=== PATIENT | female | born 1940 | race Caucasian/White ===

== ENCOUNTER 2016-03-28 02:14 | Inpatient (IN) | payer MEDICARE ==
[2016-03-28] MEDS ORDERED: SODIUM CHLORIDE 0.9% 1,000 ML IV STA ×2 (02:28)
[2016-03-28] MEDS ORDERED: SODIUM CHLORIDE 0.9% 500 ML IV STA (02:28)
--- NOTE | 2016-03-28 02:29 | ED ---
General Adult HPI - General Stated complaint: syncope, no fall Time Seen by Provider: 03/28/16 02:20 Source: RN notes reviewed, old records reviewed - History of Present Illness Initial comments: This is a 75-year-old female here for evaluation of altered mental status and responsiveness. Patient is unable to give history secondary to current condition. Patient's but in by EMS, history obtained from EMS as well as patient's chart. Patient has 2-3 days of unresponsiveness, mild arousability to painful stimuli. - Related Data Home Medications Medication Instructions Recorded Confirmed Aspirin 81 mg PO DAILY 10/12/13 06/28/15 Carbidopa/Levodopa [Sinemet 25-100 1 tab PO QID 10/12/13 06/28/15 mg] Cholecalciferol [Vitamin D3] 5,000 unit PO DAILY 10/12/13 06/27/15 Cyanocobalamin [Vitamin B-12] 1,000 mcg PO DAILY 10/12/13 06/28/15 Rosuvastatin Calcium [Crestor] 40 mg PO HS 10/12/13 06/28/15 Metoprolol Tartrate [Lopressor] 25 mg PO BID 07/16/14 06/28/15 Bisacodyl [Dulcolax] 10 mg RECTAL DAILY PRN 12/24/14 06/28/15 Potassium Chloride ER [K-Dur 10] 10 meq PO DAILY 12/24/14 06/28/15 Sennosides [Senokot] 8.6 mg PO BID PRN 12/24/14 06/28/15 Sertraline [Zoloft] 50 mg PO DAILY 12/24/14 06/28/15 metFORMIN HCL [Glucophage] 500 mg PO BID-W/MEALS 03/24/15 06/28/15 Acetaminophen Tab [Tylenol] 650 mg PO Q4H PRN 06/28/15 06/28/15 Ketoconazole 2% Cream [Nizoral 2%] 1 applic TOPICAL BID 06/28/15 06/28/15 Magnesium Hydroxide [Milk of 2,400 mg PO DAILY PRN 06/28/15 06/28/15 Magnesia] Mirabegron [Myrbetriq] 25 mg PO DAILY 06/28/15 06/28/15 Na Phos,M-B/Na Phos,Di-Ba [Fleet 133 ml RECTAL DAILY PRN 06/28/15 06/28/15 Adult] traMADol HCl [Ultram] 50 - 100 mg PO Q6H PRN 06/28/15 06/28/15 Previous Rx's Medication Instructions Recorded Baclofen [Lioresal] 10 mg PO HS #30 tab 07/23/14 Gabapentin [Neurontin] 600 mg PO BID #60 tablet 07/23/14 Sennosides-Docusate Sodium 2 tab PO DAILY #30 tablet 07/03/15 [Senokot-S] Warfarin [Coumadin] 2.5 mg PO DAILY #30 tab 07/03/15 traMADol HCL [Ultram] 50 - 100 mg PO Q4HR PRN #90 tab 07/03/15 Furosemide [Lasix] 20 mg PO QAM tab 07/05/15 Oxybutynin Xl [Ditropan XL] 10 mg PO QAM tab.er.24 07/05/15 Sulfamethox-Tmp 800-160Mg [Bactrim 1 each PO BID #14 tab 07/05/15 DS 800-160 mg] Allergies Allergy/AdvReac Type Severity Reaction Status Date / Time Penicillins Allergy Severe Rash/Hives Verified 06/28/15 12:33 carvedilol [From Coreg] Allergy Unknown Verified 06/28/15 12:33 pentazocine lactate Allergy Nausea & Verified 06/28/15 12:33 [From Talwin] Vomiting Iodine and Iodide Containing AdvReac Unknown Verified 06/28/15 12:33 Produc maxide Allergy Unknown Uncoded 06/27/15 19:50 Review of Systems ROS Statement: Those systems with pertinent positive or pertinent negative responses have been documented in the HPI. ROS Other: All systems not noted in ROS Statement are negative. Past Medical History Past Medical History: Asthma, Coronary Artery Disease (CAD), Heart Failure, Diabetes Mellitus, Hyperlipidemia, Hypertension, Osteoarthritis (OA) Additional Past Medical History / Comment(s): 12/30/14 Pt admitted to floor post op-see surgical section. Pt has legal Don aburto. Electric Fre[employer] attempted to contact but currently out of office per his staff. Other HX: NIDDM, parkinsons, NEUROPATHY, KIDNEY STONES,B12 deficiency, L shoulder bursitis, PAST SLEEP APNEA BUT AFTER LOSING 80 POUNDS NOW NO PROBLEM, CHRONIC CONSTIPATION, uti, impaired gait, hx falls, incont of urine-wears depends, chronic lumbar pain, DDD, spinal stenosis. History of Any Multi-Drug Resistant Organisms: None Reported Past Surgical History: Adenoidectomy, Appendectomy, Coronary Bypass/CABG, Heart Catheterization With Stent, Hysterectomy Additional Past Surgical History / Comment(s): 12/30/14 Cystoscopy L percutaneous nephrostolithotomy laser lithotripsy with C-arm and holmium laser. Other SX: LITHOTRYPSY, TRIPLE VESSEL BYPASS 1 YEAR AFTER BYPASS HAD STENT TO CIRC. NASAL SX, LUMBAR LAMINECTOMY AND SPINAL FUSION L2-S1 RODS /SCREWS, nasal sx Past Anesthesia/Blood Transfusion Reactions: No Reported Reaction Additional Past Anesthesia/Blood Transfusion Reaction / Comment(s): VERTIGO Date of Last Stent Placement:: 2006 Past Psychological History: Depression Additional Psychological History / Comment(s): Pt resides at [facility]. She ambulates with walker. She performs her own ADls-staff manage her medications. She doesn't drive. Electric Freight Car Operator attempted to contact pt's legal guardian re code status-Don Garcia but staff stated he is out of office. Pt requesting NO CODE. Pt is alert and oriented x 3 at this time. Electric Freight Car Operator contacted [facility] and [place] and they are checking to see if they have a copy of AD. Smoking Status: Never smoker Past Alcohol Use History: None Reported Past Drug Use History: None Reported - Past Family History Father Family Medical History: Cancer Additional Family Medical History / Comment(s): OF LUNG CANCER Mother Family Medical History: Myocardial Infarction ([place]) Additional Family Medical History / Comment(s): AT AGE 82 FROM [place] General Exam Limitations: altered mental status, physical limitation General appearance: alert, obtunded, in distress Head exam: Present: atraumatic, normocephalic, normal inspection Eye exam: Present: normal appearance, PERRL, EOMI. Absent: scleral icterus, conjunctival injection, periorbital swelling ENT exam: Present: mucous membranes dry Neck exam: Present: normal inspection. Absent: tenderness, meningismus, lymphadenopathy Respiratory exam: Present: normal lung sounds bilaterally. Absent: respiratory distress, wheezes, rales, rhonchi, stridor Cardiovascular Exam: Present: regular rate, normal rhythm, normal heart sounds. Absent: systolic murmur, diastolic murmur, rubs, gallop, clicks GI/Abdominal exam: Present: soft, normal bowel sounds. Absent: distended, tenderness, guarding, rebound, rigid Extremities exam: Present: normal inspection, full ROM, normal capillary refill. Absent: tenderness, pedal edema, joint swelling, calf tenderness Back exam: Present: normal inspection Neurological exam: Present: alert, oriented X3, CN II-XII intact Psychiatric exam: Present: normal affect, normal mood Skin exam: Present: warm, dry, intact, normal color. Absent: rash Course Vital Signs 03/28/16 03/28/16 02:48 03:38 Temperature 97.6 F Pulse Rate 55 L 52 L Respiratory 14 14 Rate Blood Pressure 140/76 111/76 O2 Sat by Pulse 98 100 Oximetry - Reevaluation(s) Reevaluation #1: 03/28/16 04:10 Patient remains unresponsive Medical Decision Making - Medical Decision Making 75 female in the ER for evaluation of decreased level of responsiveness for 3 days. Patient continue with responsiveness or the emergency room, and organic cause found. Patient will be admitted for neurological evaluation, CT lab work and urine are negative. - Lab Data Result diagrams: 03/28/16 02:20 03/28/16 02:20 Lab Results 03/28/16 03/28/16 03/28/16 Range/Units 02:20 02:20 02:20 WBC 6.0 (3.8-10.6) k/uL RBC 4.09 (3.80-5.40) m/uL Hgb 11.7 (11.4-16.0) gm/dL Hct 36.9 (34.0-46.0) % MCV 90.2 (80.0-100.0) fL MCH 28.5 (25.0-35.0) pg MCHC 31.7 (31.0-37.0) g/dL RDW 15.0 (11.5-15.5) % Plt Count 127 L (150-450) k/uL Neutrophils % 61 % Lymphocytes % 29 % Monocytes % 6 % Eosinophils % 2 % Basophils % 1 % Neutrophils # 3.7 (1.3-7.7) k/uL Lymphocytes # 1.7 (1.0-4.8) k/uL Monocytes # 0.3 (0-1.0) k/uL Eosinophils # 0.1 (0-0.7) k/uL Basophils # 0.0 (0-0.2) k/uL Hypochromasia Slight PT (9.0-12.0) sec INR (<1.1) APTT (22.0-30.0) sec Sodium 144 (137-145) mmol/L Potassium 4.3 (3.5-5.1) mmol/L Chloride 105 (98-107) mmol/L Carbon Dioxide 30 (22-30) mmol/L Anion Gap 9 mmol/L BUN 24 H (7-17) mg/dL Creatinine 1.00 (0.52-1.04) mg/dL Est GFR (MDRD) Af Amer >60 (>60 ml/min/1.73 sqM) Est GFR (MDRD) Non-Af 54 (>60 ml/min/1.73 sqM) Glucose 92 (74-99) mg/dL Plasma Lactic Acid Aden (0.7-2.0) mmol/L Calcium 9.1 (8.4-10.2) mg/dL Phosphorus 4.0 (2.5-4.5) mg/dL Magnesium 2.2 (1.6-2.3) mg/dL Total Bilirubin 0.5 (0.2-1.3) mg/dL AST 17 (14-36) U/L ALT 18 (9-52) U/L Alkaline Phosphatase 78 (38-126) U/L Total Creatine Kinase 59 (30-135) U/L CK-MB (CK-2) 1.2 (0.0-2.4) ng/mL CK-MB (CK-2) Rel Index 2.0 Troponin I <0.012 (0.000-0.034) ng/mL Total Protein 5.7 L (6.3-8.2) g/dL Albumin 3.5 (3.5-5.0) g/dL TSH 2.150 (0.465-4.680) mIU/L Urine Color Urine Appearance (Clear) Urine pH (5.0-8.0) Ur Specific [place] (1.001-1.035) Urine Protein (Negative) Urine Glucose (UA) (Negative) Urine Ketones (Negative) Urine Blood (Negative) Urine Nitrate (Negative) Urine Bilirubin (Negative) Urine Urobilinogen (<2.0) mg/dL Ur Leukocyte Esterase (Negative) Urine RBC (0-5) /hpf Urine WBC (0-5) /hpf Ur Squamous Epith Cells (0-4) /hpf Urine Bacteria (None) /hpf 03/28/16 03/28/16 03/28/16 Range/Units 02:20 02:20 02:20 WBC (3.8-10.6) k/uL RBC (3.80-5.40) m/uL Hgb (11.4-16.0) gm/dL Hct (34.0-46.0) % MCV (80.0-100.0) fL MCH (25.0-35.0) pg MCHC (31.0-37.0) g/dL RDW (11.5-15.5) % Plt Count (150-450) k/uL Neutrophils % % Lymphocytes % % Monocytes % % Eosinophils % % Basophils % % Neutrophils # (1.3-7.7) k/uL Lymphocytes # (1.0-4.8) k/uL Monocytes # (0-1.0) k/uL Eosinophils # (0-0.7) k/uL Basophils # (0-0.2) k/uL Hypochromasia PT 10.5 (9.0-12.0) sec INR 1.0 (<1.1) APTT 24.1 (22.0-30.0) sec Sodium (137-145) mmol/L Potassium (3.5-5.1) mmol/L Chloride (98-107) mmol/L Carbon Dioxide (22-30) mmol/L Anion Gap mmol/L BUN (7-17) mg/dL Creatinine (0.52-1.04) mg/dL Est GFR (MDRD) Af Amer (>60 ml/min/1.73 sqM) Est GFR (MDRD) Non-Af (>60 ml/min/1.73 sqM) Glucose (74-99) mg/dL Plasma Lactic Acid Aden 1.2 (0.7-2.0) mmol/L Calcium (8.4-10.2) mg/dL Phosphorus (2.5-4.5) mg/dL Magnesium (1.6-2.3) mg/dL Total Bilirubin (0.2-1.3) mg/dL AST (14-36) U/L ALT (9-52) U/L Alkaline Phosphatase (38-126) U/L Total Creatine Kinase (30-135) U/L CK-MB (CK-2) (0.0-2.4) ng/mL CK-MB (CK-2) Rel Index Troponin I (0.000-0.034) ng/mL Total Protein (6.3-8.2) g/dL Albumin (3.5-5.0) g/dL TSH (0.465-4.680) mIU/L Urine Color Yellow Urine Appearance Clear (Clear) Urine pH 7.0 (5.0-8.0) Ur Specific [place] 1.012 (1.001-1.035) Urine Protein 1+ H (Negative) Urine Glucose (UA) Negative (Negative) Urine Ketones Negative (Negative) Urine Blood Small H (Negative) Urine Nitrate Negative (Negative) Urine Bilirubin Negative (Negative) Urine Urobilinogen <2.0 (<2.0) mg/dL Ur Leukocyte Esterase Negative (Negative) Urine RBC 62 H (0-5) /hpf Urine WBC 2 (0-5) /hpf Ur Squamous Epith Cells <1 (0-4) /hpf Urine Bacteria Rare H (None) /hpf - Radiology Data Radiology results: report reviewed (Chest x-ray and CT brain negative for acute disease), image reviewed Disposition Clinical Impression: Altered mental status, Delirium due to general medical condition Disposition: ADMITTED IP TO THIS [facility] Condition: Fair Referrals: Ulises Smith MD [Primary Care Provider] - 1-2 days
[2016-03-28 02:49] LABS: Appearance,Urine Clear (Clear); Bacteria,Urine Rare /hpf; Bilirubin,Urine Negative (Negative); Glucose,Urine (UA) Negative (Negative); Ketones,Urine Negative (Negative); Leukocyte Esterase,Urine Negative (Negative); Nitrite,Urine Negative (Negative); Particle Count 6598; Protein,Urine 1+ (Negative); RBC,Urine 62 /hpf (0-5); Specific Gravity,Urine 1.012 (1.001-1.035); Squamous Epithelial Cell,Urine <1 /hpf (0-4); UA Billing (MACRO vs. MICRO) MICRO; Urobilinogen,Urine <2.0 mg/dL (<2.0); WBC,Urine 2 /hpf (0-5)
[2016-03-28 02:52] LABS: Basophils % (A) 1 %; CH 29.5; CHCM 32.9; Eosinophils # (A) 0.1 k/uL (0-0.7); Eosinophils % (A) 2 %; HCT 36.9 % (34.0-46.0); HDW 3.33; HGB 11.7 gm/dL (11.4-16.0); Hypochromasia Slight; Luc # (Auto) 0.11; Luc % (Auto) 2; Lymphocytes # (A) 1.7 k/uL (1.0-4.8); Lymphocytes % (A) 29 %; MCH 28.5 pg (25.0-35.0); MCHC 31.7 g/dL (31.0-37.0); MCV 90.2 fL (80.0-100.0); Mean Platelet Volume 8.2; Monocytes # (A) 0.3 k/uL (0-1.0); Monocytes % (A) 6 %; Neutrophils # (A) 3.7 k/uL (1.3-7.7); Neutrophils % (A) 61 %; RBC 4.09 m/uL (3.80-5.40); WBC (Perox) 6.32
[2016-03-28 02:56] LABS: Partial Thromboplastin Time 24.1 sec (22.0-30.0); Prothrombin Time 10.5 sec (9.0-12.0)
[2016-03-28 02:57] LABS: ALT 18 U/L (9-52); AST 17 U/L (14-36); Alkaline Phosphatase 78 U/L (38-126); Anion Gap 9 mmol/L; Blood Urea Nitrogen 24 mg/dL (7-17); Calcium 9.1 mg/dL (8.4-10.2); Carbon Dioxide 30 mmol/L (22-30); Chloride 105 mmol/L (98-107); Glucose 92 mg/dL (74-99); Magnesium 2.2 mg/dL (1.6-2.3); Non-African American GFR(MDRD) 54 (>60 ml/min/1.73 sqM); Potassium 4.3 mmol/L (3.5-5.1); Sodium 144 mmol/L (137-145); Total Bilirubin 0.5 mg/dL (0.2-1.3); Total Protein 5.7 g/dL (6.3-8.2)
[2016-03-28 03:02] LABS: Creatine Kinase 59 U/L (30-135)
[2016-03-28 03:15] LABS: Creatine Kinase MB 1.2 ng/mL (0.0-2.4); Troponin I <0.012 ng/mL (0.000-0.034)
--- NOTE | 2016-03-28 03:39 | XR ---
EXAMINATION TYPE: XR chest 2V DATE OF EXAM: 03/28/2016 3:04 AM COMPARISON: 07/01/2015 HISTORY: Weakness TECHNIQUE: Frontal and lateral views of the chest are obtained. FINDINGS: Mild pulmonary vascular congestion is suggested. Postsurgical changes of sternotomy and mild cardiome keith are present. There is no focal pneumonia,, pleural effusion, or pneumothorax seen. The osseous structures are int act. IMPRESSION: 1. Mild pulmonary vascular congestion. 2. No focal pneumonia. 3. Cardiomegaly and sternotomy.
--- NOTE | 2016-03-28 03:48 | CT ---
EXAMINATION TYPE: CT brain wo con DATE OF EXAM: 03/28/2016 3:04 AM COMPARISON: 06/30/2015 HISTORY: syncope, AMS CT DLP: 1116.0 mGycm Automated exposure control for dose reduction was used. FINDINGS: There is no acute intracranial hemorrhage, mass effect, or midline shift identified. Cortical sulci a nd ventricles are prominent with age-related atrophic changes of brain. Chronic white matter ischemic changes are suggested bilaterally. There is suggestion of old infarction changes in the left tempora l lobe of brain with adjacent mild atrophic changes. The globes are intact. There is evidence of chronic bilateral mastoiditis and right otitis media. IMPRESSION: No acute intracranial hemorrhage, mass effect, or midline shift is seen. Age-related atrophic changes of brain. Bilateral chronic mastoiditis and right otitis media.
[2016-03-28] MEDS: SODIUM CHLORIDE 0.9% 1,000 ML IV SCH ×3 (15:35→23:32)
[2016-03-28] MEDS: ACETAMINOPHEN TAB 325 MG TAB PO PRN (15:47)
[2016-03-28] MEDS: CHOLECALCIFEROL 1,000 UNIT TAB PO SCH (17:31)
[2016-03-28] MEDS: CARBIDOPA-LEVODOPA 25-100 MG 1 EACH TAB PO SCH ×2 (17:31→22:06)
[2016-03-28] MEDS: GABAPENTIN 300 MG CAP PO SCH (17:31)
[2016-03-28] MEDS: ASPIRIN 81 MG CHEW PO SCH (17:31)
[2016-03-28] MEDS ORDERED: LEVOFLOXACIN 500MG-D5W PMX 500 MG in DEXTROSE/WATER 1 100ML.BAG IVPB SCH (21:00)
--- NOTE | 2016-03-28 21:36 | HP ---
DATE OF ADMISSION: CHIEF COMPLAINT: A 75-year-old white female with syncope ( ) mental status and unresponsiveness was brought to the hospital for altered mental status. She was unresponsive, mildly arousable to painful stimuli. HOME MEDICATIONS: 1. Sinemet. 2. Aspirin. 3. Vitamin D. 4. Vitamin B12. 5. Crestor. 6. Lopressor. 7. Dulcolax. 8. K-Dur 10. 9. Senokot. 10. Zoloft. 11. Glucophage. 12. Tylenol. 13. Nizoral. 14. Milk of Magnesia. 15. Myrbetriq. 16. Fleet Adult. 17. Tramadol. ALLERGIES: 1. PENICILLIN. 2. COREG. 3. TALWIN. 4. IODINE. 5. MAXZIDE. REVIEW OF SYSTEMS: PAST MEDICAL HISTORY: 1. Coronary artery disease. 2. Heart failure. 3. Diabetes mellitus. 4. Asthma. 5. Hypertension. 6. Dyslipidemia. 7. Osteoarthritis. 8. Parkinson's. 9. Neuropathy. 10. Kidney stones. 11. B12 deficiency. 12. Left shoulder bursitis. 13. Sleep apnea. 14. Chronic constipation. 15. Chronic lumbar pain. 16. Spinal stenosis. 17. Degenerative disc disease. SURGICAL HISTORY: 1. Adenoidectomy. 2. Appendectomy. 3. CABG. 4. Heart catheterization with stents. 5. Hysterectomy. 6. Cystoscopy. 7. Left percutaneous nephrolithotomy. 8. Laser lithotripsy with C-arm and Holmium laser. 9. Triple-vessel bypass one year after bypass with stent to the circumflex. 10. Lumbar laminectomy. 11. Spinal fusion. 12. Vertigo. 13. Depression. Lives at [facility]. Wheelchair-bound. Does not smoke or drink. She is NO CODE. PHYSICAL EXAM: Temperature 97.6, pulse 50 to 54, respiratory 14 to 16, blood pressure 140/76, oxygen saturation 98% to 100% on room air. CARDIOVASCULAR: Regular rate and rhythm. S1, S2. LUNGS: Clear. GI: Soft. EXTREMITIES: No cyanosis, clubbing or edema. BACK: Normal inspection. PSYCHIATRIC: Normal affect. SKIN: Clean, dry, intact. Platelets 127,000. White count 6. CT scan shows chronic mastoiditis, left otitis media. ASSESSMENT: 1. Coronary artery disease. 2. Altered mental status, delirium. 3. Hematuria with 62 red cells in the urine. Will repeat urine. Neurology consult. EEG. Treat for mastoiditis with Levaquin 500 daily for 21 days. Please see further orders.
[2016-03-28] MEDS: BACLOFEN 10 MG TAB PO SCH (22:05)
[2016-03-28] MEDS: SERTRALINE 50 MG TAB PO SCH (22:06)
--- NOTE | 2016-03-28 22:51 | CONS ---
DATE OF CONSULTATION: 03/28/2016 CHIEF COMPLAINT: Altered mental status. HISTORY OF PRESENT ILLNESS: Mrs. Curry is a pleasant 75-year-old female who is being evaluated by the neurology service per the request of Dr. Ulises Smith for altered mental status. The patient was brought into [facility] Emergency Room after she was found to be quite confused at her usp. In the emergency room, the patient was unable to give a history, but she was moving all 4 extremities without any obvious lateralizing weakness. According to the chart, the symptoms started approximately 2 days ago and have been getting worse. A stat CT scan of the brain was done, which showed no acute intracranial abnormalities. There was generalized atrophy seen. Her CBC was normal except for mild thrombocytopenia at 127,000. Her comprehensive metabolic profile and cardiac enzymes were normal. Her urinalysis showed no evidence of any urinary tract infection, but she did have mild hematuria. At the time of my evaluation, the patient is resting in her bed and appears to be in no acute distress. Her symptoms have significantly improved, as she is awake and oriented x3. The patient does have history of Parkinson disease and is on Sinemet at home. PAST MEDICAL HISTORY: Parkinson disease, coronary artery disease, asthma, heart failure, diabetes, dyslipidemia, hypertension, osteoarthritis, depression, history of appendectomy, adenoidectomy, coronary artery bypass grafting and hysterectomy. SOCIAL HISTORY: She denies any tobacco, alcohol or drug use. FAMILY HISTORY: Positive for cancer and heart disease. HOME MEDICATIONS: Reviewed in the chart. ALLERGIES: PENICILLIN, COREG, TALWIN, MAXZIDE, IODINE. REVIEW OF SYSTEMS: CONSTITUTIONAL: Positive for fatigue. EYES: Negative. ENT: Positive for occasional vertigo. CARDIOVASCULAR: Negative. RESPIRATORY: Positive for occasional shortness of breath. NEUROLOGICAL: As mentioned above. GASTROINTESTINAL: Positive for occasional heartburn. GENITOURINARY: Negative. PSYCHIATRIC: Positive for history of depression. DERMATOLOGICAL: Negative. ENDOCRINE: Positive for diabetes. MUSCULOSKELETAL: Positive for frequent joint pain. PHYSICAL EXAM: Vital signs show a temperature of 98.3, pulse 59, respirations 16, blood pressure 173/72. GENERAL APPEARANCE: The patient is a well-developed elderly male who appears to be in no acute distress. HEENT: Normocephalic, atraumatic. No facial asymmetry is seen, Parkinsonian facial features are noticed. Neck is supple with no masses felt. CARDIOVASCULAR: Regular rate and rhythm. ABDOMEN: Nontender, nondistended. Extremities showed no edema or clubbing. NEUROLOGICAL: The patient is alert, aware and oriented x3. Speech and language are normal. Mild resting tremor is noticed in bilateral upper extremities, left more than right. Mild cogwheel rigidity is present in bilateral upper extremities. Strength is 5- out of 5 in all 4 extremities. Sensory exam was normal to light touch in all 4 extremities. No facial asymmetry is noticed on cranial nerve testing. IMPRESSION: 1. Altered mental status, resolved. 2. Parkinson disease. RECOMMENDATIONS: The patient's altered mental status appears to have resolved, as she is back to her baseline at this time and is oriented x3. The exact etiology is unknown, but she may have had this episode secondary to medication adverse effect. I will order an EEG. As for her Parkinson disease, I will keep her on her current dose of Sinemet. Physical Therapy will be consulted. Continue neuro checks. I did review her CT scan of the brain, which showed no acute abnormalities. I will continue to follow with you. Further recommendations to follow. Thank you, Dr. Smith, for allowing me to participate in the care of your patient. If you have any questions, please feel free to contact me.
[2016-03-29 02:40] LABS: Appearance,Urine Clear (Clear); Bacteria,Urine Rare /hpf; Bilirubin,Urine Negative (Negative); Glucose,Urine (UA) Negative (Negative); Ketones,Urine Negative (Negative); Leukocyte Esterase,Urine Negative (Negative); Nitrite,Urine Negative (Negative); PH, Urine 7.5 (5.0-8.0); Particle Count 309; Protein,Urine Trace (Negative); RBC,Urine <1 /hpf (0-5); Specific Gravity,Urine 1.006 (1.001-1.035); Squamous Epithelial Cell,Urine <1 /hpf (0-4); UA Billing (MACRO vs. MICRO) MICRO; Urobilinogen,Urine <2.0 mg/dL (<2.0); WBC,Urine 4 /hpf (0-5)
[2016-03-29] MEDS: GABAPENTIN 300 MG CAP PO SCH ×2 (09:33→18:40)
[2016-03-29] MEDS: CARBIDOPA-LEVODOPA 25-100 MG 1 EACH TAB PO SCH ×4 (09:33→22:00)
[2016-03-29] MEDS: SODIUM CHLORIDE 0.9% 1,000 ML IV SCH (09:34)
[2016-03-29] MEDS: FUROSEMIDE 20 MG TAB PO SCH ×2 (09:34→13:24)
--- NOTE | 2016-03-29 14:21 | P.PN ---
Subjective 75-year-old being seen on rounds this morning. Patient resting in bed does not appear in any acute distress. Patient states the symptoms have significantly improved since being admitted to the hospital. Hospital course 75-year-old female being evaluated for altered mental status. Patient was admitted to [facility] emergency room after care providers at the [facility] facility [place] noted the patient to be confused. Health history had been obtained from EMS as well as the patient's chart. Patient apparently had 2-3 day duration of unresponsiveness mildly arousable to painful stimuli It was noted in the emergency room the patient was not able to give a history. But was moving all extremities without any obvious lateralizing weakness. Symptoms reportedly had occurred 2 days prior but had gotten more symptomatic. A stat CAT scan of the brain was done it showed no acute intracranial abnormality. It showed generalized atrophy. It also showed chronic mastoiditis and left ostis media Patient's white count was normal patient was noted to have mild thrombocytopenia. Dr. Galan did see patient on consultation.. Recommended physical therapy. And continue the patient on her current dose of Sinemet for her Parkinson's disease Shortly after being admitted patient's symptoms had resolved patient was back to her baseline mentation was oriented 3 the exact etiology for the confusion unclear suspect due to to medication adverse effect Objective - Vital Signs Vital signs: Vital Signs Temp 97 F L 03/29/16 07:00 Pulse 63 03/29/16 07:00 Resp 17 03/29/16 07:00 BP 168/76 03/29/16 07:00 Pulse Ox 98 03/29/16 07:00 Intake & Output 03/28/16 03/29/16 03/29/16 18:59 06:59 18:59 Intake Total 100 Output Total 400 Balance -300 Weight 81.647 kg Intake: IV 100 Sodium Chloride 0.9% 1, 100 000 ml @ 100 mls/hr IV . Q10H BC Rx#:[id number] Output: Urine 400 Other: # Voids 1 1 1 # Bowel Movements 1 - Exam Physical exam 75-year-old female resting in bed pleasant operative oriented to person place no real recall of event Lungs essentially clear adequate air movement on room air Heart S1-S2 audible regular Abdomen soft nontender Extremities moves all extremities appropriately no edema no calf tenderness - Labs CBC & Chem 7: 03/28/16 02:20 03/28/16 02:20 Labs: Abnormal Lab Results - Last 24 Hours (Table) 03/29/16 Range/Units 02:21 Urine Protein Trace H (Negative) Urine Blood Trace H (Negative) Urine Bacteria Rare H (None) /hpf Assessment and Plan Plan: Impression Present on admission acute toxic encephalopathy unclear etiology likely secondary to medication adverse effect resolved Present on admission computed tomography scan of the brain chronic mastoiditis and left otitis media History of advanced Parkinson's disease with lower extremity weakness with limited mobility with impairment of activities of daily living Chronic debility use of a walker for gait balance due to advanced Parkinson's disease Known coronary artery disease prior coronary artery bypass grafting Chronic urinary incontinence Type 2 diabetes non-insulin Hypertension essential Plan PT OT eval Resume home meds as appropriate Continue Levaquin to cover mastoiditis and left otitis DVT and GI prophylaxis Possible discharge back to the ECF facility in the next 24 hours The above dictated assessment and findings were discussed with dr cabrera . Impression and the plan of care have been dictated as directed. Kamilah Michelle nurse practitioner acting as a scribe for dr cabrera
--- NOTE | 2016-03-29 14:27 | P.PN ---
Subjective Principal diagnosis: Altered mental status This is 75-year-old female continuing be evaluated by the neurology service for altered mental status. She was brought in from [facility] after being found confused. Her computed tomography scan of the brain in the ER showed no acute intracranial abnormalities. An EEG has been performed. At the time of my exam she is sleeping comfortably in bed. She is easily awoken. Note that she has been started on Levaquin by Dr. Smith for finding of mastoiditis bilaterally on her CT. She has a history of fairly advanced Parkinson's disease. Objective - Vital Signs Vital signs: Vital Signs Temp 97 F L 03/29/16 07:00 Pulse 63 03/29/16 07:00 Resp 17 03/29/16 07:00 BP 168/76 03/29/16 07:00 Pulse Ox 98 03/29/16 07:00 Intake & Output 03/28/16 03/29/16 03/29/16 18:59 06:59 18:59 Intake Total 100 Output Total 400 Balance -300 Weight 81.647 kg Intake: IV 100 Sodium Chloride 0.9% 1, 100 000 ml @ 100 mls/hr IV . Q10H BC Rx#:[id number] Output: Urine 400 Other: # Voids 1 1 1 # Bowel Movements 1 - Constitutional General appearance: Present: cooperative, no acute distress - EENT Eyes: Present: EOMI, PERRLA. Absent: abnormal pupil, ptosis ENT: Present: hearing grossly normal - Neck Neck: Absent: rigidity - Respiratory Respiratory: negative: prolonged expiration, prolonged inspiration - Cardiovascular Rhythm: regular - Gastrointestinal General gastrointestinal: Absent: distended, tenderness - Neurologic Neurologic Comment(s): She is alert awake and oriented 3. Speech and language are normal. Mild to moderate resting tremor in bilateral upper extremities, with pill-rolling in the left extremity. Cogwheel rigidity is present. Strength remains 5 minus out of 5 in all 4 extremities. There is no sensory loss in any extremity. There is no facial asymmetry. No seizure-like activity is seen. - Labs CBC & Chem 7: 03/28/16 02:20 03/28/16 02:20 Labs: Abnormal Lab Results - Last 24 Hours (Table) 03/29/16 Range/Units 02:21 Urine Protein Trace H (Negative) Urine Blood Trace H (Negative) Urine Bacteria Rare H (None) /hpf Assessment and Plan (1) Altered mental status Status: Resolved (2) Chronic back pain Status: Chronic (3) Diabetes Status: Chronic (4) Parkinson disease Status: Chronic Plan: The patient's altered mental status has resolved. She is back to her baseline. Her EEG has been performed, details are not yet available. Note that she is on Ultram for her chronic low back pain. If any epileptiform waves are seen on her EEG, would recommend discontinuation of Ultram. It can decrease seizure threshold. Otherwise continue physical occupational therapy. Continue Parkinson's meds as prescribed. Barring any serious abnormalities on EEG she would be cleared from a neurological standpoint. I have performed a history and physical on the above patient. I have reviewed the above note, and agree.
[2016-03-29] MEDS: CHOLECALCIFEROL 1,000 UNIT TAB PO SCH (18:39)
[2016-03-29] MEDS: ASPIRIN 81 MG CHEW PO SCH (18:39)
[2016-03-29] MEDS: SERTRALINE 50 MG TAB PO SCH (22:00)
[2016-03-29] MEDS ORDERED: LEVOFLOXACIN 250MG-D5W PMX 250 MG in DEXTROSE/WATER 1 50ML.BAG IVPB SCH (22:00)
[2016-03-29] MEDS: BACLOFEN 10 MG TAB PO SCH (22:00)
[2016-03-29] MEDS: FAMOTIDINE 20 MG TAB PO SCH (22:01)
--- NOTE | 2016-03-30 06:48 | EEG ---
DATE OF SERVICE: 03/29/2016 REASON FOR TESTING: Altered mental status. AGE: 75Y DESCRIPTION OF THE PROCEDURE: This EEG was performed using a 21-channel digital electroencephalograph, following the international 10 to 20 system. DESCRIPTION OF THE RECORDING: From the beginning of the tracing, and with the patient's eyes closed, the background rhythm was mostly consisting of 7 Hz theta frequency in the posterior occipital leads. No obvious asymmetry is seen. Photic stimulation was performed with a minimal driving response seen. No pathological waves were elicited. Occasional muscle artifacts are seen. Hyperventilation was not performed. The patient remains awake throughout the tracing. No epileptiform discharges were seen. Her EKG lead showed a regular rate and rhythm. INTERPRETATION: This awake EEG can be considered within normal limits. There was no asymmetry seen. No epileptiform discharges were noticed. The absence of epileptiform discharges does not rule out the diagnosis of epilepsy, therefore, clinical correlation is recommended.
[2016-03-30 08:00] LABS: ALT 23 U/L (9-52); AST 23 U/L (14-36); Alkaline Phosphatase 68 U/L (38-126); Anion Gap 11 mmol/L; Basophils % (A) 0 %; Blood Urea Nitrogen 16 mg/dL (7-17); CH 29.4; CHCM 32.3; Calcium 9.1 mg/dL (8.4-10.2); Carbon Dioxide 26 mmol/L (22-30); Chloride 108 mmol/L (98-107); Eosinophils # (A) 0.1 k/uL (0-0.7); Eosinophils % (A) 2 %; Glucose 102 mg/dL (74-99); HCT 35.6 % (34.0-46.0); HDW 3.29; HGB 11.3 gm/dL (11.4-16.0); Hypochromasia Slight; Luc # (Auto) 0.09; Luc % (Auto) 2; Lymphocytes # (A) 1.1 k/uL (1.0-4.8); Lymphocytes % (A) 21 %; MCH 29.1 pg (25.0-35.0); MCHC 31.8 g/dL (31.0-37.0); MCV 91.5 fL (80.0-100.0); Mean Platelet Volume 7.1; Monocytes # (A) 0.3 k/uL (0-1.0); Monocytes % (A) 6 %; Neutrophils # (A) 3.6 k/uL (1.3-7.7); Neutrophils % (A) 70 %; Non-African American GFR(MDRD) >60 (>60 ml/min/1.73 sqM); Potassium 3.9 mmol/L (3.5-5.1); RBC 3.89 m/uL (3.80-5.40); Sodium 145 mmol/L (137-145); Total Bilirubin 0.6 mg/dL (0.2-1.3); Total Protein 5.9 g/dL (6.3-8.2); WBC 5.1 k/uL (3.8-10.6); WBC (Perox) 5.21
[2016-03-30] MEDS: FUROSEMIDE 20 MG TAB PO SCH (08:04)
[2016-03-30] MEDS: FAMOTIDINE 20 MG TAB PO SCH (08:05)
[2016-03-30] MEDS: ACETAMINOPHEN TAB 325 MG TAB PO PRN (08:05)
[2016-03-30] MEDS: CARBIDOPA-LEVODOPA 25-100 MG 1 EACH TAB PO SCH ×2 (08:05→12:33)
[2016-03-30] MEDS: GABAPENTIN 300 MG CAP PO SCH (08:05)
[2016-03-30] MEDS: SODIUM CHLORIDE 0.9% 1,000 ML IV SCH ×2 (08:05→09:00)
[2016-03-30 08:26] VITALS: BP 147/80; PULSE 69; RESP 16; TEMP 98.1
--- NOTE | 2016-03-30 11:16 | P.DS ---
Providers Date of admission: 03/28/16 04:08 Expected date of discharge: 03/30/16 Attending physician: Ulises Cabrera Consults: Dr. Galan Primary care physician: Ulises Cabrera [facility] Course: A 75-year-old female who was transferred from [facility] after care providers found the patient to be more confused disoriented change in mental status which was different from her baseline. Patient was seen in the emergency room had a CAT scan of the brain showed no acute intracranial abnormalities. It did show chronic mastoiditis and left ostis media it was noted when the patient was in the emergency room was confused. The health history had to be obtained from the EMS and the patient's chart. Apparently the patient has had over the last several days Of unresponsive arousable to painful stimuli. In the emergency room patient was moving all extremities no obvious lateralizing weakness. Patient does have a history of advanced Parkinson's disease. A neurology eval was requested. Patient was seen by Dr. Galan. Recommendations were continue patient's current medication. Discontinue Ultram could be contributing to the confusion. There was an EEG that showed no acute findings. They recommended continue with physical and occupational therapy. Patient was felt to be back at baseline appropriate to proceed with a discharge to home. Patient was started on Levaquin for the left ostial media physical occupational therapy did see the patient. Patient was able to ambulate with the use of rolled walker in the hallway with assist Shortly after being admitted patient's symptoms had resolved patient was back to her baseline mentation was oriented 3 the exact etiology for the confusion unclear suspect due to to medication adverse effect such as Ultram Patient was felt hemodynamically stable and appropriate proceed with discharge recommendations about holding Ultram were initiated Impression Present on admission acute toxic encephalopathy unclear etiology likely secondary to Ultram medication adverse effect resolved Present on admission computed tomography scan of the brain chronic mastoiditis and left otitis media History of advanced Parkinson's disease with lower extremity weakness with limited mobility with impairment of activities of daily living Chronic debility use of a walker for gait balance due to advanced Parkinson's disease Known coronary artery disease prior coronary artery bypass grafting Chronic urinary incontinence Type 2 diabetes non-insulin Hypertension essential The above dictated assessment and findings were discussed with dr cabrera Impression and the plan of care have been dictated as directed. Kamilah Michelle nurse practitioner acting as a scribe for Dr. Cabrera Patient Condition at Discharge: Fair Plan - Discharge Summary New Discharge Prescriptions: Levofloxacin [Levaquin] 250 mg PO DAILY #7 tab Discharge Medication List Aspirin 81 mg PO DAILY@1700 10/12/13 [History] Carbidopa/Levodopa [Sinemet 25-100 mg] 1 tab PO QID 10/12/13 [History] Cholecalciferol [Vitamin D3] 5,000 unit PO DAILY@1700 10/12/13 [History] Cyanocobalamin [Vitamin B-12] 1,000 mcg PO Q48H 10/12/13 [History] Rosuvastatin Calcium [Crestor] 40 mg PO HS 10/12/13 [History] Metoprolol Tartrate [Lopressor] 25 mg PO BID@0800,1700 07/16/14 [History] Baclofen [Lioresal] 10 mg PO HS #30 tab 07/23/14 [Rx] Bisacodyl [Dulcolax] 10 mg RECTAL DAILY PRN 12/24/14 [History] Sennosides [Senokot] 8.6 mg PO BID PRN 12/24/14 [History] Sertraline [Zoloft] 50 mg PO HS 12/24/14 [History] metFORMIN HCL [Glucophage] 500 mg PO BID@0800,1700 03/24/15 [History] Acetaminophen Tab [Tylenol] 650 mg PO Q4H PRN 06/28/15 [History] Magnesium Hydroxide [Milk of Magnesia] 2,400 mg PO DAILY PRN 06/28/15 [History] Mirabegron [Myrbetriq] 25 mg PO BID 06/28/15 [History] Na Phos,M-B/Na Phos,Di-Ba [Fleet Adult] 133 ml RECTAL DAILY PRN 06/28/15 [ History] Sennosides-Docusate Sodium [Senokot-S] 2 tab PO DAILY #30 tablet 07/03/15 [Rx] Furosemide [Lasix] 20 mg PO QAM tab 07/05/15 [Rx] Gabapentin [Neurontin] 600 mg PO BID@0800,1700 03/28/16 [History] Olopatadine HCl [Pataday] 2 drop RIGHT EYE DAILY PRN 03/28/16 [History] Polyethylene Glycol 3350 [Miralax] 17 gm PO DAILY PRN 03/28/16 [History] Levofloxacin [Levaquin] 250 mg PO DAILY #7 tab 03/30/16 [Rx] Follow up Appointment(s)/Referral(s): Ulises Cabrera MD [Primary Care Provider] - 1 Week Discharge Disposition: HOME WITH HOME HEALTH SERVICES
== END 2016-03-30 13:10 | disposition home health service (06) | DRG 93 ==
LOC: EC 02:14 → 6SEL 04:08 → 5MS5E 16:04
PROVIDERS: ADMIT Family Medicine; ATTEND Family Medicine
DX: G92 Toxic encephalopathy (principal); E11.40 Type 2 diabetes mellitus with diabetic neuropathy, unspecified; D69.6 Thrombocytopenia, unspecified; I50.9 Heart failure, unspecified; T40.4X5A Adverse effect of other synthetic narcotics, initial encounter; E78.5 Hyperlipidemia, unspecified; G20 Parkinson's disease; G89.29 Other chronic pain; H66.92 Otitis media, unspecified, left ear; H70.10 Chronic mastoiditis, unspecified ear; I10 Essential (primary) hypertension; I25.10 Atherosclerotic heart disease of native coronary artery without angina pectoris; J45.909 Unspecified asthma, uncomplicated; R31.9 Hematuria, unspecified; E53.8 Deficiency of other specified B group vitamins; F32.9 Major depressive disorder, single episode, unspecified; K59.09 Other constipation; M19.90 Unspecified osteoarthritis, unspecified site; M48.00 Spinal stenosis, site unspecified; R32 Unspecified urinary incontinence; M54.5 Low back pain; Z79.01 Long term (current) use of anticoagulants; Z79.82 Long term (current) use of aspirin; Z79.84 Long term (current) use of oral hypoglycemic drugs; Z79.899 Other long term (current) drug therapy; Z88.0 Allergy status to penicillin; Z88.8 Allergy status to other drugs, medicaments and biological substances; Z95.1 Presence of aortocoronary bypass graft; Z98.1 Arthrodesis status; Z99.3 Dependence on wheelchair; Z95.5 Presence of coronary angioplasty implant and graft; Z82.49 Family history of ischemic heart disease and other diseases of the circulatory system; Y92.009 Unspecified place in unspecified non-institutional (private) residence as the place of occurrence of the external cause
CPT/HCPCS: 36415; 70450; 71020; 80053; 81001; 82550; 82553; 83605; 83735; 84100; 84443; 84484; 85025; 85610; 85730; 87040; 87086; 93005; 95819; 96365; 96366; 99285